=== PATIENT | male | born 1980 | race Caucasian/White ===

== ENCOUNTER 2019-03-21 10:29 | Emergency (ER) | payer MEDICAID ==
[~2019-03-21] VITALS: Ht 172.7 cm; Wt 72.6 kg
[2019-03-21 10:45] VITALS: BP 119/64
--- NOTE | 2019-03-21 11:11 | NUR ---
Patient discharged to home in stable condition. Written and verbal after care instructions given. Patient verbalizes understanding of instruction.
== END 2019-03-21 11:13 | disposition home or self-care (01) ==
LOC: ER 10:33
DX: Z76.0 Encounter for issue of repeat prescription (principal)
CPT/HCPCS: Z7502